=== PATIENT | female | born 1990 | race Hispanic/Latino ===

== ENCOUNTER 2022-12-14 19:12 | Emergency (ER) | payer OTHER ==
[~2022-12-14] VITALS: Ht 160 cm; Wt 87.1 kg
[2022-12-14] MEDS ORDERED: FLUORESCEIN SODIUM 1 STRIP STRIP OP SCH (21:00)
[2022-12-14 21:16] VITALS: BP 135/86
== END 2022-12-14 21:22 | disposition home or self-care (01) ==
LOC: EDH 19:12
DX: H11.31 Conjunctival hemorrhage, right eye (principal); G43.909 Migraine, unspecified, not intractable, without status migrainosus